=== PATIENT | female | born 1995 | race Caucasian/White ===

== ENCOUNTER → 2017-03-05 | Outpatient (CLI) | payer BC ==
[~2017-03-05] VITALS: Ht 167.6 cm; Wt 182.0 kg
[~2017-03-05] MED LIST: PRENATAL VITAM1 EAC8 PO
[2017-03-05 09:56] VITALS: BP 125/68
== END | disposition home or self-care (01) ==
LOC: IVINF 09:47
DX: Z31.82 Encounter for Rh incompatibility status (principal); Z3A.28 28 weeks gestation of pregnancy; Z67.11 Type A blood, Rh negative
CPT/HCPCS: 96372; J2790

== ENCOUNTER 2017-05-01 12:05 | Outpatient (CLI) | payer BC ==
[~2017-05-01] VITALS: Ht 170.2 cm; Wt 93.9 kg
[2017-05-01 12:36] VITALS: BP 133/79
[2017-05-01 14:23] VITALS: BP 125/73
== END 2017-05-01 15:03 | disposition home or self-care (01) ==
LOC: LDRP-OP 12:05 → 2WEST 12:06 → LDRP-OP 06-27 09:25
DX: O47.03 False labor before 37 completed weeks of gestation, third trimester (principal); O26.893 Other specified pregnancy related conditions, third trimester; G89.29 Other chronic pain; Z87.440 Personal history of urinary (tract) infections; Z87.891 Personal history of nicotine dependence; Z3A.36 36 weeks gestation of pregnancy
CPT/HCPCS: 59025; G0378

== ENCOUNTER 2017-06-02 09:43 | Inpatient (IN) | payer BC, OTHER ==
[~2017-06-02] VITALS: Ht 167.6 cm; Wt 96.1 kg
[2017-06-02] VITALS (18 sets, daily range): BP systolic 111–148; BP diastolic 56–93
[2017-06-02] MEDS ORDERED: PRENATAL TABLE1 EACH PO (10:09)
[2017-06-02 10:59] LABS: BASOPHIL (%) 0.3 % (0-1); BASOPHIL COUNT 0.1 K/uL (0-0.1); EOSINOPHIL (%) 0.5 % (0-5); EOSINOPHIL COUNT 0.1 K/uL (0-0.3); HEMATOCRIT 36.4 % (36.0-46.0); HEMOGLOBIN 11.8 G/DL (11.9-15.5); IMMATURE GRANULOCYTE (%) 1.5 % (0.0-0.7); LYMPHOCYTE COUNT 2.3 K/uL (1.0-2.8); MCH 26.4 PG (29.0-34.0); MCHC 32.4 G/DL (30.0-36.0); MCV 81.4 FL (83-99); MONOCYTE COUNT 1.3 K/uL (0-0.8); NEUTROPHIL (%) 75.7 % (45-76); NEUTROPHIL COUNT 12.3 K/uL (1.8-6.4); PLATELET COUNT 205 K/uL (156-360); RBC DIS.WIDTH-CV 14.8 % (11.8-14.6); RBC DIS.WIDTH-SD 43.6 % (39-53); RED BLOOD COUNT 4.47 M/uL (3.80-5.20); WHITE BLOOD COUNT 16.2 K/uL (4.1-10.2)
[2017-06-03] VITALS (10 sets, daily range): BP systolic 114–128; BP diastolic 59–76
[2017-06-03] MEDS ORDERED: IBUPROFEN800 MG PO (01:25)
[2017-06-03] MEDS ORDERED: ENDOCET 5-3251 EACH PO (01:25)
[2017-06-03 06:33] LABS: BASOPHIL (%) 0.2 % (0-1); EOSINOPHIL (%) 0 % (0-5); HEMATOCRIT 30.8 % (36.0-46.0); HEMOGLOBIN 9.9 G/DL (11.9-15.5); IMMATURE GRANULOCYTE (%) 0.9 % (0.0-0.7); LYMPHOCYTE (%) 5.8 % (15-42); LYMPHOCYTE COUNT 1.1 K/uL (1.0-2.8); MCH 26.5 PG (29.0-34.0); MCHC 32.1 G/DL (30.0-36.0); MCV 82.6 FL (83-99); MONOCYTE (%) 5.7 % (3-12); MONOCYTE COUNT 1.1 K/uL (0-0.8); NEUTROPHIL (%) 87.4 % (45-76); NEUTROPHIL COUNT 16.3 K/uL (1.8-6.4); PLATELET COUNT 197 K/uL (156-360); RBC DIS.WIDTH-CV 15.2 % (11.8-14.6); RBC DIS.WIDTH-SD 45.1 % (39-53); RED BLOOD COUNT 3.73 M/uL (3.80-5.20); WHITE BLOOD COUNT 18.6 K/uL (4.1-10.2)
[2017-06-04 03:09] VITALS: BP 132/76
[2017-06-04 07:00] VITALS: BP 109/66
[2017-06-04 12:15] VITALS: BP 114/60
[2017-06-04 14:55] VITALS: BP 110/59
[2017-06-04 19:15] VITALS: BP 120/74
[2017-06-04 22:25] VITALS: BP 121/64
[2017-06-05 02:52] VITALS: BP 126/65
[2017-06-05 08:17] VITALS: BP 129/77
== END 2017-06-05 13:30 | disposition home or self-care (01) | DRG 766 ==
LOC: LDRP-OP 09:43 → 2WEST 09:44 → LDRP-OP 06-27 19:10
PROVIDERS: Midwife; Obstetrics & Gynecology
DX: O76 Abnormality in fetal heart rate and rhythm complicating labor and delivery (principal); O62.0 Primary inadequate contractions; O48.0 Post-term pregnancy; O26.03 Excessive weight gain in pregnancy, third trimester; O99.334 Smoking (tobacco) complicating childbirth; F17.200 Nicotine dependence, unspecified, uncomplicated; Z3A.41 41 weeks gestation of pregnancy; Z37.0 Single live birth
CPT/HCPCS: 83030; 85025; 86850; 86870; 86900; 86901; 86905; 86920; C1755; G0378; J0456; J0595; J0690; J1100; J1170; J2175; J2274; J2400; J2405; J2790; J3010; J7120